=== PATIENT | female | born 1970 | race Caucasian/White ===

== ENCOUNTER 2017-06-16 18:00 | Emergency (ER) | payer BC, OTHER ==
[~2017-06-16] VITALS: Ht 172.7 cm; Wt 133.0 kg
[~2017-06-16 18:00] MED LIST: ABIL15TA2 PO; ARMO250T PO; BENZ1TAB PO; ESZO2 PO; FERR324T4 PO; LISD70 PO; LORTA5 PO; TRAZ150T75 PO; VORT20TA PO
[2017-06-16 18:05] VITALS: BP 116/59; PULSE 85; RESP 16; TEMP 98.3; O2SAT 95
[2017-06-16] MEDS ORDERED: DIAZ5TAB PO (18:27)
[2017-06-16] MEDS ORDERED: DICL75TA PO (18:27)
--- NOTE | 2017-06-16 18:27 | PD ---
HPI Chief Complaint: Headache Time Seen by Provider: 18:22 Travel History International Travel<30 days: No Contact w/Intl Traveler<30days: No Traveled to known affect area: No History of Present Illness HPI 46-year-old female with history of migraines here for evaluation of a migraine headache. The patient reports having pain for the last 4 days which has progressively worsen, currently 8 out of 10, frontal and radiates down the left side of her face. She states the pain feels like a migraine. No fevers or chills. No neck pain or stiffness. She is having photophobia. She takes diclofenac sodium for migraines, however this has not been helping. Last migraine was about 6 months ago. PFSH Past Medical History Asthma: Yes Anxiety: Yes Depression: Yes Migraines: Yes Tetanus Vaccination: > 5 Years Influenza Vaccination: No ?: Not : 4 Para: 3 Miscarriage: 1 Ectopic : Yes Ovarian Cysts: Yes Past Surgical History Cholecystectomy: Yes Gynecologic Surgery: Yes (C/S X 1; ECTOPTIC X 1) Tonsillectomy: Yes (adenoids only) Other Surgery: Yes (BILATERAL BREAST REDUCTION.) Social History Alcohol Use: No Tobacco Use: No Substance Use: No Allergies-Medications (Allergen,Severity, Reaction): Coded Allergies: celecoxib (Unverified Allergy, Severe, Rash, 06/16/17) Sulfa (Sulfonamide Antibiotics) (Unverified Allergy, Intermediate, ) Uncoded Allergies: MUSLCE RELAXANTS (Allergy, Severe, 05/30/10) CAN NOT HAVE MUSLCE RELAXANTS WITH SURGERY Reported Meds & Prescriptions Reported Meds & Active Scripts Active Reported Diazepam 5 Mg Tab 5 Mg PO DAILY PRN Diclofenac Sodium DR (Diclofenac Sodium) 75 Mg Tabdr 75 Mg PO DAILY Review of Systems Except as stated in HPI: all other systems reviewed are Neg Physical Exam Narrative GENERAL: Well-developed, well-nourished, comfortable, no apparent distress. SKIN: Focused skin assessment warm/dry. No rash. HEAD: Atraumatic. Normocephalic. EYES: Pupils equal, round, 3 mm, reactive to light. EOMI. Funduscopic exam shows no papilledema, normal appearing retina bilaterally. No scleral icterus. No injection or drainage. ENT: No nasal bleeding or discharge. Mucous membranes pink and moist. NECK: Trachea midline. No JVD. No nuchal rigidity. CARDIOVASCULAR: Regular rate and rhythm. RESPIRATORY: No accessory muscle use. Clear to auscultation. Breath sounds equal bilaterally. MUSCULOSKELETAL: No obvious deformities. No clubbing. No cyanosis. No edema. NEUROLOGICAL: Awake and alert. No obvious cranial nerve deficits. Motor grossly within normal limits. Normal speech. PSYCHIATRIC: Appropriate mood and affect; insight and judgment normal. Data Data Last Documented VS Vital Signs Date Time Temp Pulse Resp B/P (MAP) Pulse Ox O2 Delivery O2 Flow Rate FiO2 06/16/17 21:05 79 16 96/60 (72) 95 Room Air 06/16/17 18:05 98.3 Orders Orders Basic Metabolic Panel (Bmp) (06/16/17 18:25) Complete Blood Count With Diff (06/16/17 18:25) Prothrombin Time / Inr (Pt) (06/16/17 18:25) Act Partial Throm Time (Ptt) (06/16/17 18:25) Iv Access Insert/Monitor (06/16/17 18:25) Ecg Monitoring (06/16/17 18:25) Oximetry (06/16/17 18:25) Sodium Chloride 0.9% Flush (Ns Flush) (06/16/17 18:30) Ketorolac Inj (Toradol Inj) (06/16/17 18:30) Metoclopramide Inj (Reglan Inj) (06/16/17 18:30) Sodium Chlor 0.9% 1000 Ml Inj (Ns 1000 M (06/16/17 18:30) Prochlorperazine Inj (Compazine Inj) (06/16/17 20:00) Ct Brain W/O Iv Contrast(Rout) (06/16/17 ) Morphine Inj (Morphine Inj) (06/16/17 20:30) Ed Discharge Order (06/16/17 21:23) Labs Laboratory Tests Test 06/16/17 18:38 White Blood Count 6.4 TH/MM3 Red Blood Count 4.75 MIL/MM3 Hemoglobin 11.5 GM/DL Hematocrit 36.7 % Mean Corpuscular Volume 77.4 FL Mean Corpuscular Hemoglobin 24.2 PG Mean Corpuscular Hemoglobin Concent 31.3 % Red Cell Distribution Width 15.1 % Platelet Count 364 TH/MM3 Mean Platelet Volume 8.2 FL Neutrophils (%) (Auto) 64.1 % Lymphocytes (%) (Auto) 22.6 % Monocytes (%) (Auto) 8.3 % Eosinophils (%) (Auto) 3.1 % Basophils (%) (Auto) 1.9 % Neutrophils # (Auto) 4.2 TH/MM3 Lymphocytes # (Auto) 1.4 TH/MM3 Monocytes # (Auto) 0.5 TH/MM3 Eosinophils # (Auto) 0.2 TH/MM3 Basophils # (Auto) 0.1 TH/MM3 CBC Comment DIFF FINAL Differential Comment Prothrombin Time 9.8 SEC Prothromb Time International Ratio 1.0 RATIO Activated Partial Thromboplast Time 23.6 SEC Blood Urea Nitrogen 8 MG/DL Creatinine 0.72 MG/DL Random Glucose 152 MG/DL Calcium Level 8.3 MG/DL Sodium Level 138 MEQ/L Potassium Level 3.8 MEQ/L Chloride Level 104 MEQ/L Carbon Dioxide Level 27.3 MEQ/L Anion Gap 7 MEQ/L Estimat Glomerular Filtration Rate 87 ML/MIN [facility] Medical Decision Making Medical Screen Exam Complete: Yes Emergency Medical Condition: Yes Differential Diagnosis Migraine headache, tension headache, cluster headache, intracranial abnormality , SAH/meningitis/encephalitis less likely Narrative Course Initial vital signs show heart rate 85, blood pressure 116/59, pulse ox 95% on room air, oral temp of 98.3F. CBC: WBC 6.4, hemoglobin 11.5, hematocrit 36.7, platelets 364. BMP is remarkable for random glucose 152, otherwise unremarkable. Patient was given IV Toradol and IV Reglan as well as a liter of normal saline IV. At 7:50 PM on reassessment the patient reports that her pain has improved, currently 5 out of 10, however she still feels nauseous. She will be given a dose of Compazine. Because of ongoing headache, CT head will be ordered, and LP considered to evaluate for possible SAH. CT head: CONCLUSION: 1. No acute intracranial abnormalities. Mucosal thickening left maxillary sinus. Patient was made aware of CT head findings. She states that her pain has improved and is now 3 out of 10. I explained to her that because she is having ongoing pain that the next step is from an LP to rule out SAH/meningitis/ encephalitis. Patient does not want to have this procedure done and understands the risks of declining an LP. She will be given a dose of morphine and reassessed. 9:20 PM: On reassessment the patient is sleeping comfortably. She states she feels a lot better. She feels well enough to go home. I advised that she should follow-up with her primary care physician this week. She was informed on when to return to the emergency department. She verbalizes understanding and agreement with plan. Diagnosis Primary Impression: Headache Qualified Codes: R51 - Headache Referrals: Primary Care Physician 3 days Additional Instructions: Follow-up with your primary care physician this week. Return to the emergency department for worsening symptoms or any other concerns. Disposition: 01 DISCHARGE HOME Condition: Stable Kevin Ferreira MD Jun 16, 2017 18:27
[2017-06-16] MEDS ORDERED: SODIUM CHLORIDE 0.9% FLUSH 10 ML FLUSH IV FLUSH PRN (18:30)
[2017-06-16] MEDS ORDERED: KETOROLAC TROMETHAMINE 30 MG/ML (IVP) VIAL IV PUSH ONE (18:30)
[2017-06-16] MEDS ORDERED: METOCLOPRAMIDE HCL 10 MG/2 ML VIAL IV PUSH ONE (18:30)
[2017-06-16] MEDS ORDERED: SODIUM CHLOR 0.9% 1000 ML INJ 1,000 ML IV ONE (18:30)
[2017-06-16 18:47] VITALS: BP 106/70; PULSE 87; RESP 18; O2SAT 96; O2SAT 98
[2017-06-16 19:00] VITALS: BP 110/69; PULSE 81; O2SAT 98
[2017-06-16 19:03] LABS: AUTOMATED NEUTROPHIL # 4.2 TH/MM3 (1.8-7.7); BASOPHIL # 0.1 TH/MM3 (0-0.2); BASOPHIL % 1.9 % (0.0-2.0); EOSINOPHIL # 0.2 TH/MM3 (0-0.4); EOSINOPHIL % 3.1 % (0.0-4.0); HEMATOCRIT 36.7 % (35.0-46.0); LYMPH % 22.6 % (9.0-44.0); LYMPHOCYTE # 1.4 TH/MM3 (1.0-4.8); MEAN CELL VOLUME 77.4 FL (80.0-100.0); MEAN CORPUSCULAR HEMOGLOBIN 24.2 PG (27.0-34.0); MEAN CORPUSCULAR HGB CONC 31.3 % (32.0-36.0); MONO % 8.3 % (0.0-8.0); NEUT % 64.1 % (16.0-70.0); PLATELET COUNT 364 TH/MM3 (150-450); RED BLOOD COUNT 4.75 MIL/MM3 (4.00-5.30); RED CELL DISTRIBUTION WIDTH 15.1 % (11.6-17.2); WHITE BLOOD COUNT 6.4 TH/MM3 (4.0-11.0)
[2017-06-16 19:05] LABS: HEMO FLAGS DIFF FINAL
[2017-06-16 19:10] LABS: POTASSIUM 3.8 MEQ/L (3.5-5.1)
[2017-06-16 19:13] LABS: BICARBONATE 27.3 MEQ/L (21.0-32.0)
[2017-06-16 19:16] LABS: APTT (PATIENT) 23.6 SEC (24.3-30.1); PROTHROMBIN TIME - PATIENT 9.8 SEC (9.8-11.6)
[2017-06-16 20:00] VITALS: BP 96/57; PULSE 73; RESP 16; O2SAT 95
[2017-06-16] MEDS ORDERED: PROCHLORPERAZINE INJ 10 MG/2 ML VIAL IV PUSH ONE (20:00)
--- NOTE | 2017-06-16 20:23 | RADRPT ---
EXAM DATE/TIME: 06/16/2017 20:02 [facility] COMPARISON: No previous studies available for comparison. INDICATIONS : Cephalgia with nausea and vomiting. RADIATION DOSE: 64.64 CTDIvol (mGy) MEDICAL HISTORY : None SURGICAL HISTORY : None. ENCOUNTER: Initial ACUITY: 1 day PAIN SCALE: 6/10 LOCATION: cranial TECHNIQUE: Multiple contiguous axial images were obtained of the head. Using automated exposure control and adj ustment of the mA and/or kV according to patient size, radiation dose was kept as low as reasonably a chievable to obtain optimal diagnostic quality images. DICOM format image data is available electro nically for review and comparison. FINDINGS: CEREBRUM: The ventricles are normal for age. No evidence of midline shift, mass lesion, hemorrhage or acute in farction. No extra-axial fluid collections are seen. POSTERIOR FOSSA: The cerebellum and brainstem are intact. The 4th ventricle is midline. The cerebellopontine angle i s unremarkable. EXTRACRANIAL: The visualized portion of the orbits is intact. SKULL: The calvaria is intact. No evidence of skull fracture. CONCLUSION: 1. No acute intracranial abnormalities. Mucosal thickening left maxillary sinus. Deepak Thompson MD on June 16, 2017 at 20:20 Board Certified Radiologist. This report was verified electronically.
[2017-06-16] MEDS ORDERED: MORPHINE SULFATE 4 MG/ML INJ IV PUSH ONE (20:30)
[2017-06-16 21:05] VITALS: BP 96/60; PULSE 79; RESP 16; O2SAT 95
[2017-06-16 22:02] VITALS: BP 104/67
== END 2017-06-16 22:31 | disposition home or self-care (01) ==
LOC: PHED 18:00
DX: R51 Headache (principal)
CPT/HCPCS: 70450; 80048; 85025; 85610; 85730; 96361; 96374; 96375; 99285; J0780; J1885; J2270; J2765; J7030